=== PATIENT | female | born 1955 | race Asian ===

== ENCOUNTER 2021-05-18 15:10 | Inpatient (IN) | payer MEDICARE, BC ==
[~2021-05-18] VITALS: Ht 157.5 cm; Wt 39.5 kg
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
[2021-05-18] MEDS ORDERED: ACETAMINOPHEN 325 MG TABLET PO PRN (15:30)
[2021-05-18] MEDS ORDERED: TEMAZEPAM 7.5 MG CAPSULE PO PRN (15:30)
[2021-05-18] MEDS ORDERED: BLOOD SUGAR DIAGNOSTIC 1 EACH STRIP IN ONE (15:30)
[2021-05-18] MEDS ORDERED: LORAZEPAM 0.5 MG TABLET PO PRN (15:30)
[2021-05-18] MEDS ORDERED: MAGNESIUM HYDROXIDE 30 ML UDC PO PRN (15:30)
[2021-05-18] MEDS ORDERED: MAG HYDROX/AL HYDROX/SIMETH 30 ML UDC PO PRN (15:30)
[2021-05-18] MEDS ORDERED: LAMO25TA10 PO (16:00)
[2021-05-18] MEDS ORDERED: INSU200I4 SQ (16:00)
[2021-05-18] MEDS ORDERED: METF-440 PO (16:00)
[2021-05-18] MEDS ORDERED: DEXTROSE 50%-WATER 50 ML DISP.SYRIN IV PRN (18:00)
[2021-05-18] MEDS: CEPHALEXIN MONOHYDRATE 250 MG CAPSULE PO SCH (18:23)
[2021-05-18 20:02] VITALS: BP 141/79
[2021-05-18] MEDS: BLOOD SUGAR DIAGNOSTIC 1 EACH STRIP VI SCH (21:21)
[2021-05-18] MEDS: *INSULIN REGULAR(HUMULIN R)HUM 100 UNIT/ML VIAL SQ PRN (21:24)
[2021-05-19] MEDS: CEPHALEXIN MONOHYDRATE 250 MG CAPSULE PO SCH ×4 (00:04→17:03)
[2021-05-19] MEDS: BLOOD SUGAR DIAGNOSTIC 1 EACH STRIP VI SCH ×4 (07:34→21:22)
[2021-05-19 08:00] VITALS: BP 145/80
[2021-05-19] MEDS: GLUCERNA SHAKE 237 ML CAN PO SCH ×2 (08:00→17:43)
[2021-05-19] MEDS: METFORMIN 500 MG TABLET PO SCH ×2 (08:47→16:21)
[2021-05-19 08:59] LABS: ALBUMIN 3.7 g/dL (3.4-5.0); CALCIUM, SERUM 8.8 mg/dL (8.5-10.1); CHOLESTEROL 227 mg/dL (<200); CREATININE 0.4 mg/dL (0.6-1.3); HDL CHOLESTEROL 91 mg/dL (40-60); LDL 118 mg/dL (0-99); POTASSIUM 3.3 mmol/L (3.5-5.1); TRIGLYCERIDES 70 mg/dL (30-150)
[2021-05-19 16:00] VITALS: BP 108/70
--- NOTE | 2021-05-19 16:05 | NUR ---
Family Contact: SW called the pts , Desmond ([phone]), to discuss the pts treatment plan and he stated that he would like the pt home as soon as possible.
--- NOTE | 2021-05-19 16:13 | NUR ---
Initial Discharge Plan: Pt currently resides at home with her located at [address] [place] [address]; ([phone]). Per pt, she would like to return home. SW will work with the pt and the MD regarding appropriate discharge planning. SW will form a safe and proper discharge.
[2021-05-19] MEDS: INSULIN REGULAR, HUMAN 100 UNIT/ML 3 ML VIAL SQ PRN (17:06)
--- NOTE | 2021-05-19 17:44 | NUR ---
RN NOTES PATIENT ABLE TO CONSUME AT LEAST 80% OF MEALS PER SOFTWARE PACKAGER.
[2021-05-19 20:11] VITALS: BP 113/68
[2021-05-19] MEDS: *INSULIN REGULAR(HUMULIN R)HUM 100 UNIT/ML VIAL SQ PRN (21:25)
[2021-05-19] MEDS: MIRTAZAPINE 15 MG TABLET PO SCH (21:46)
[2021-05-19] MEDS: LamoTRIgine 25 MG TABLET PO SCH (21:46)
[2021-05-20] MEDS: CEPHALEXIN MONOHYDRATE 250 MG CAPSULE PO SCH ×5 (00:21→23:07)
[2021-05-20] MEDS: GLUCERNA SHAKE 237 ML CAN PO SCH ×2 (07:35→18:09)
[2021-05-20] MEDS: BLOOD SUGAR DIAGNOSTIC 1 EACH STRIP VI SCH ×4 (07:35→20:43)
[2021-05-20] MEDS: METFORMIN 500 MG TABLET PO SCH ×2 (07:46→18:10)
[2021-05-20] MEDS: LamoTRIgine 25 MG TABLET PO SCH ×2 (07:46→20:44)
[2021-05-20 08:00] VITALS: BP 143/70
[2021-05-20] MEDS: INSULIN REGULAR, HUMAN 100 UNIT/ML 3 ML VIAL SQ PRN ×2 (08:07→12:27)
[2021-05-20 15:52] VITALS: BP 101/69
[2021-05-20 20:18] VITALS: BP 108/65
[2021-05-20 20:21] VITALS: BP 108/65
[2021-05-20] MEDS: MIRTAZAPINE 15 MG TABLET PO SCH (21:24)
--- NOTE | 2021-05-21 02:22 | NUR ---
Ms Gloria PADILLA was visited by her and son. She layed supine in her bed the complete visit Her fed her some custard she swollowed w/o problems She is non verbal this night but will follow simple directions. Her blood sugar at HS 73 jello fed to pt and had to coax her to eat and dring. She willopen her eyes when told to momentaruli
[2021-05-21] MEDS: CEPHALEXIN MONOHYDRATE 250 MG CAPSULE PO SCH ×2 (05:33→12:43)
[2021-05-21 08:00] VITALS: BP 99/59
[2021-05-21] MEDS: BLOOD SUGAR DIAGNOSTIC 1 EACH STRIP VI SCH ×4 (08:15→21:28)
[2021-05-21] MEDS: GLUCERNA SHAKE 237 ML CAN PO SCH ×2 (08:15→17:19)
[2021-05-21] MEDS: METFORMIN 500 MG TABLET PO SCH ×2 (08:17→17:19)
[2021-05-21] MEDS: LamoTRIgine 25 MG TABLET PO SCH ×2 (08:17→21:30)
--- NOTE | 2021-05-21 12:55 | NUR ---
Received an order from Dr. Jacob that may come and help to eat for Sunday (02/19/21) and Sunday, (02/20/21). Dr. Jacob is only covering in the weekends and it's up to the primary, psychiatrist for the following days.
--- NOTE | 2021-05-21 13:00 | NUR ---
GPS/RN BS =141 AT 1200. NO INSULIN COVERAGE GIVEN D/T POOR FOOD INTAKE.
[2021-05-21 16:15] VITALS: BP 99/57
[2021-05-21 20:15] VITALS: BP 88/35
[2021-05-21] MEDS: *INSULIN REGULAR(HUMULIN R)HUM 100 UNIT/ML VIAL SQ PRN (21:28)
--- NOTE | 2021-05-21 21:29 | NUR ---
ACCUCHECK FSBG 84mg/dl Hold insulin per level ordered.
[2021-05-21] MEDS: MIRTAZAPINE 15 MG TABLET PO SCH (21:30)
[2021-05-22 08:00] VITALS: BP 95/53
[2021-05-22] MEDS: BLOOD SUGAR DIAGNOSTIC 1 EACH STRIP VI SCH ×4 (08:20→21:34)
[2021-05-22] MEDS: GLUCERNA SHAKE 237 ML CAN PO SCH ×2 (08:21→16:42)
[2021-05-22] MEDS: LamoTRIgine 25 MG TABLET PO SCH ×2 (08:22→21:34)
[2021-05-22] MEDS: METFORMIN 500 MG TABLET PO SCH ×2 (08:22→16:42)
[2021-05-22 16:00] VITALS: BP 89/53
[2021-05-22 20:00] VITALS: BP 106/60
[2021-05-22] MEDS: MIRTAZAPINE 15 MG TABLET PO SCH (21:34)
[2021-05-22] MEDS: *INSULIN REGULAR(HUMULIN R)HUM 100 UNIT/ML VIAL SQ PRN (22:17)
[2021-05-23 06:28] LABS: BASOPHILS % (AUTO) 0.7 % (0.0-2.0); EOSINOPHILS % (AUTO) 2.3 % (0.0-6.0); HEMATOCRIT 45 % (33-45); HEMOGLOBIN 15.1 g/dL (11.5-14.8); LYMPHOCYTES # (AUTO) 1.5 K/uL (0.8-4.8); LYMPHOCYTES % (AUTO) 27.6 % (20.0-44.0); MEAN CORPUSCULAR HGB CONC 34 g/dl (31.0-36.0); MEAN CORPUSCULAR VOLUME 89 fL (82-100); MONOCYTES # (AUTO) 0.6 K/uL (0.1-1.30); MONOCYTES % (AUTO) 10.9 % (2.0-12.0); NEUTROPHILS # (AUTO) 3.1 K/uL (1.8-8.9); NEUTROPHILS % (AUTO) 58.5 % (43.0-81.0); PLATELET COUNT (AUTO) 299 K/uL (150-450); RED BLOOD CELL COUNT(AUTO) 5.04 MIL/uL (4.0-5.2); WHITE BLOOD COUNT (AUTO) 5.3 K/uL (4.3-11.0)
[2021-05-23 07:16] LABS: CALCIUM, SERUM 8.6 mg/dL (8.5-10.1); CREATININE 0.6 mg/dL (0.6-1.3); MAGNESIUM 2.2 mg/dL (1.8-2.4); PHOSPHORUS 3.9 mg/dL (2.5-4.9); POTASSIUM 3.6 mmol/L (3.5-5.1)
[2021-05-23] MEDS: BLOOD SUGAR DIAGNOSTIC 1 EACH STRIP VI SCH ×4 (07:34→21:50)
[2021-05-23 08:00] VITALS: BP 104/64
[2021-05-23] MEDS: METFORMIN 500 MG TABLET PO SCH ×2 (08:11→17:23)
[2021-05-23] MEDS: GLUCERNA SHAKE 237 ML CAN PO SCH (08:12)
[2021-05-23] MEDS: LamoTRIgine 25 MG TABLET PO SCH ×2 (08:12→21:23)
[2021-05-23 16:00] VITALS: BP 100/53
[2021-05-23] MEDS: ENSURE ENLIVE CHOC 237 ML CAN PO SCH (17:23)
[2021-05-23 20:00] VITALS: BP 101/48
[2021-05-23 20:47] LABS: COLOR,URINE YELLOW (YELLOW); LEUKOCYTE ESTERASE ,URINE NEGATIVE (NEGATIVE); NITRITE, URINE NEGATIVE (NEGATIVE); PH,URINE 5.5 (5.0-8.0); PROTEIN,URINE NEGATIVE (NEGATIVE); UGLUCOSE NEGATIVE (NEGATIVE); UROBILINOGEN,URINE 0.2 EU/dL (0.2)
[2021-05-23 20:50] LABS: BILIRUBIN,URINE NEGATIVE (NEGATIVE)
[2021-05-23 20:51] LABS: BACTERIA,URINE Few /HPF (None Seen); RBC,URINE 0-2 /HPF (0-2); SQUAMOUS EPITHELIAL CELL,UR Few /HPF (None Seen); URINE AMORPHOUS URATE Moderate /HPF (None Seen); WBC,URINE 0-2 /HPF (0-3)
[2021-05-23] MEDS: MIRTAZAPINE 15 MG TABLET PO SCH (21:23)
--- NOTE | 2021-05-23 21:50 | NUR ---
Blood sugar = 86, no insulin coverage based on sliding scale protocol
--- NOTE | 2021-05-24 00:12 | NUR ---
DR. STANFORD SAW PATIENT AT BEDSIDE, PT NOT INTERACTIVE WHEN ENGAGED. DR STANFORD CHANGED THE REMERON 15 MG HS TO REMERON 22.5 MG PO HS. ALSO SAID TO ENCOURAGE PATIENT TO DRINK ENSURE DRINK.
--- NOTE | 2021-05-24 06:31 | NUR ---
RN CLOSING NOTE PATIENT SLEEPING IN BED, NO S/S OF DISTRESS OR SOB NOTED, BREATHING EVEN AND UNLABORED. ENCOURAGED PATIENT TO EAT PUDDING BUT ONLY ATE 2 SPOONFULS WITH MEDICATIONS AND REFUSED TO EAT MORE. ENCOURAGED PT TO DRINK WATER AND WAS COOPERATIVE. PT ONLY SAID A FEW WORDS WHEN ENGAGED IN CONVERSATION, SLEPT MOST OF THE SHIFT. NO COMPLAINTS OF PAIN AT THIS TIME. PT DENIED SI/HI THROUGHOUT SHIFT. PATIENT COMPLIANT WITH MEDICATION. MEDICATIONS GIVEN ORDERED, MEDS CRUSHED WITH PUDDING. PATIENT NEEDS MET THROUGHOUT SHIFT. SAFETY MEASURES & ASPIRATION PRECAUTIONS IN PLACE IN PLACE, BED LOCKED IN LOWEST POSITION, SIDE RAILS UP X 2, HOB ELEVATED, BED ALARM ON, SAFETY CHECKS Q15 MINS THROUGHOUT SHIFT. WILL ENDORSE TO DAY SHIFT NURSE FOR CONTINUITY OF CARE
[2021-05-24 08:00] VITALS: BP 99/59
[2021-05-24] MEDS: BLOOD SUGAR DIAGNOSTIC 1 EACH STRIP VI SCH ×4 (08:29→21:15)
[2021-05-24] MEDS: ENSURE ENLIVE CHOC 237 ML CAN PO SCH ×3 (08:35→16:47)
[2021-05-24] MEDS: METFORMIN 500 MG TABLET PO SCH ×2 (09:00→17:22)
[2021-05-24] MEDS: LamoTRIgine 25 MG TABLET PO SCH ×2 (10:34→20:59)
--- NOTE | 2021-05-24 11:22 | NUR ---
Probable Cause Hearing: Pts [phone] hold was upheld for grave disability and danger to herself.
--- NOTE | 2021-05-24 17:19 | NUR ---
INSULIN COVERAGE HELD PT. NOT EATING.
--- NOTE | 2021-05-24 17:58 | NUR ---
CALL OUT TO DR. HUBER,PHOTO SENT OF URINE CULTURE.
[2021-05-24 20:00] VITALS: BP 110/57
[2021-05-24] MEDS: CEPHALEXIN MONOHYDRATE 500 MG CAPSULE PO SCH (20:59)
[2021-05-24] MEDS: MIRTAZAPINE 15 MG TABLET PO SCH (21:06)
[2021-05-24] MEDS: *INSULIN REGULAR(HUMULIN R)HUM 100 UNIT/ML VIAL SQ PRN (21:25)
[2021-05-25 08:00] VITALS: BP 107/65
[2021-05-25] MEDS: ENSURE ENLIVE CHOC 237 ML CAN PO SCH ×3 (08:34→16:15)
[2021-05-25] MEDS: METFORMIN 500 MG TABLET PO SCH ×2 (08:34→16:15)
[2021-05-25] MEDS: LamoTRIgine 25 MG TABLET PO SCH ×2 (08:34→21:15)
[2021-05-25] MEDS: BLOOD SUGAR DIAGNOSTIC 1 EACH STRIP VI SCH ×4 (08:34→21:17)
[2021-05-25] MEDS: CEPHALEXIN MONOHYDRATE 500 MG CAPSULE PO SCH ×2 (08:34→16:15)
[2021-05-25 16:00] VITALS: BP 100/59
[2021-05-25] MEDS: INSULIN REGULAR, HUMAN 100 UNIT/ML 3 ML VIAL SQ PRN (17:53)
--- NOTE | 2021-05-25 20:00 | NUR ---
GPS RN OPEN NOTE: PER REPORT FROM EARLIER PATIENT IS EATING WHEN VISITS ALMOST 50% OF MEALS AND ALLOWED TO VISIT FOR ALL MEALS IF HE COMES. PT STILL HAS SOMEWHAT POOR APPETITE. PATIENT LYING IN BED. NO APPARENT ACUTE DISTRESS NOTED. VSS, DEPRESSED WITH FLAT AFFECT. ENCOURAGED PO INTAKE. PT DENIES CURRENT SI/HI AT PRESENT TIME. PER REPORT PT COMPLIANT WITH MEDICATIONS AND BLOOD SUGAR MONITORING. PT NEEDS ENCOURAGEMENT FOR ADEQUATE PO INTAKE AND ADLS. WILL CONT TO MONITOR FOR SAFETY AND BEHAVIOR PER PROTOCOL.
[2021-05-25 20:34] VITALS: BP 96/52
[2021-05-25] MEDS: *INSULIN REGULAR(HUMULIN R)HUM 100 UNIT/ML VIAL SQ PRN (21:15)
[2021-05-25] MEDS: MIRTAZAPINE 15 MG TABLET PO SCH (21:16)
--- NOTE | 2021-05-25 22:10 | NUR ---
CARE ENDORSED TO FAA RN.
[2021-05-26 08:00] VITALS: BP 106/63
[2021-05-26] MEDS: BLOOD SUGAR DIAGNOSTIC 1 EACH STRIP VI SCH ×4 (08:21→21:23)
[2021-05-26] MEDS: ENSURE ENLIVE CHOC 237 ML CAN PO SCH ×3 (08:36→17:11)
[2021-05-26] MEDS: CEPHALEXIN MONOHYDRATE 500 MG CAPSULE PO SCH ×2 (08:36→16:50)
[2021-05-26] MEDS: LamoTRIgine 25 MG TABLET PO SCH ×2 (08:36→21:03)
[2021-05-26] MEDS: METFORMIN 500 MG TABLET PO SCH ×2 (08:36→16:50)
--- NOTE | 2021-05-26 12:05 | NUR ---
RN-NOTES DR. MAYO RINCON IN THE UNIT AND MADE AWARE OF PATIENT POOR P.O INTAKE WITH VERBAL ORDER OF CBC,CMP,MAG, PHOSPHORUS IN AM AND USCS . NOTED AND CARRIED OUT.
[2021-05-26 16:12] VITALS: BP 113/55
[2021-05-26] MEDS: INSULIN REGULAR, HUMAN 100 UNIT/ML 3 ML VIAL SQ PRN (17:13)
[2021-05-26 20:21] VITALS: BP 108/63
--- NOTE | 2021-05-26 20:30 | NUR ---
RN NOTE PATIENT'S SISTER & NEPHEW VISITED THE PATIENT, PER SISTER SHE FED SOUP TO THE PT. & TOLERATED WELL. WILL CONTINUE TO ENCOURAGE THE PATIENT PO INTAKE TOLERATED.
[2021-05-26 20:31] VITALS: BP 108/63
[2021-05-26] MEDS: MIRTAZAPINE 15 MG TABLET PO SCH (21:49)
[2021-05-26] MEDS: *INSULIN REGULAR(HUMULIN R)HUM 100 UNIT/ML VIAL SQ PRN (22:11)
--- NOTE | 2021-05-27 06:00 | NUR ---
RN NOTE PATIENT SLEPT WELL AT NIGHT, WAS UP COUPLE TIMES TO USE THE RESTROOM. ENCOURAGED PO INTAKE TOLERATED BUT PATIENT REFUSES TO EAT OR DRINK MUCH, KEEPS PUSHING NURSE'S HAND AWAY. ELECTRONIC NEWS GATHERING CAMERA PERSON WAS ABLE TO ASSIST THE PATIENT TO HAVE 1/2 PUDDING, 1/2 APPLE JUICE & WATER THROUGH OUT THE NIGHT. WILL CONTINUE TO MONITOR.
--- NOTE | 2021-05-27 06:03 | NUR ---
RN NOTE URINE SPECIMEN COLLECTED FOR CULTURE ORDERED BY MD & WILL BE SENT TO THE LAB.
[2021-05-27 07:11] LABS: BASOPHILS % (AUTO) 0.8 % (0.0-2.0); EOSINOPHILS % (AUTO) 2.4 % (0.0-6.0); HEMATOCRIT 43 % (33-45); HEMOGLOBIN 14.6 g/dL (11.5-14.8); LYMPHOCYTES % (AUTO) 22.7 % (20.0-44.0); MEAN CORPUSCULAR HGB CONC 34 g/dl (31.0-36.0); MEAN CORPUSCULAR VOLUME 88 fL (82-100); MONOCYTES # (AUTO) 0.4 K/uL (0.1-1.30); MONOCYTES % (AUTO) 10.3 % (2.0-12.0); NEUTROPHILS # (AUTO) 2.7 K/uL (1.8-8.9); NEUTROPHILS % (AUTO) 63.8 % (43.0-81.0); PLATELET COUNT (AUTO) 275 K/uL (150-450); RED BLOOD CELL COUNT(AUTO) 4.91 MIL/uL (4.0-5.2); WHITE BLOOD COUNT (AUTO) 4.3 K/uL (4.3-11.0)
[2021-05-27 07:45] LABS: ALBUMIN 3.2 g/dL (3.4-5.0); BILIRUBIN,TOTAL 0.5 mg/dL (0.2-1.0); CALCIUM, SERUM 8.8 mg/dL (8.5-10.1); CREATININE 0.6 mg/dL (0.6-1.3); MAGNESIUM 1.9 mg/dL (1.8-2.4); PHOSPHORUS 3.3 mg/dL (2.5-4.9); POTASSIUM 3.7 mmol/L (3.5-5.1); TOTAL PROTEIN, SERUM 6.3 g/dL (6.4-8.2)
[2021-05-27 08:10] VITALS: BP 116/69
[2021-05-27] MEDS: BLOOD SUGAR DIAGNOSTIC 1 EACH STRIP VI SCH ×4 (08:11→22:39)
[2021-05-27] MEDS: CEPHALEXIN MONOHYDRATE 500 MG CAPSULE PO SCH ×2 (08:31→16:42)
[2021-05-27] MEDS: ENSURE ENLIVE CHOC 237 ML CAN PO SCH ×3 (08:31→16:42)
[2021-05-27] MEDS: METFORMIN 500 MG TABLET PO SCH ×2 (08:31→16:42)
[2021-05-27] MEDS: LamoTRIgine 25 MG TABLET PO SCH ×2 (08:31→21:00)
[2021-05-27] MEDS: INSULIN REGULAR, HUMAN 100 UNIT/ML 3 ML VIAL SQ PRN ×2 (12:20→17:31)
[2021-05-27 16:00] VITALS: BP 94/57
--- NOTE | 2021-05-27 18:24 | NUR ---
RN-NOTES PATIENT LYING IN BED,AWAKE,ALERT ,GUARDED,CALM,NO ACUTE DISTRESS NOTED. ENDORSED TO THE CHARGE NURSE.
[2021-05-27 20:38] VITALS: BP 110/59
[2021-05-27 21:06] VITALS: BP 110/59
--- NOTE | 2021-05-27 22:20 | NUR ---
RN NOTE PATIENT'S BS IS 93 MG/DL, NO SSI COVERAGE NEEDED. ASSISTED PATIENT WITH FEEDING 1 PUDDING, 1 ORANGE JUICE & WATER, TOLERATED WELL. PATIENT NEEDS LOTS OF ENCOURAGEMENT WITH PO INTAKE, PATIENT ATTEMPTS TO PUSH WRITERS HAND AWAY EACH TIME SHE WAS OFFERED PO INTAKE. WILL CONTINUE TO ENCOURAGE PO INTAKE TOLERATED.
[2021-05-27] MEDS: MIRTAZAPINE 15 MG TABLET PO SCH (22:39)
--- NOTE | 2021-05-27 23:30 | NUR ---
RN NOTE PATIENT HAD 1/2 CUP OF ENSURE & TOLERATED WELL.
[2021-05-28 08:00] VITALS: BP 116/57
[2021-05-28] MEDS: LamoTRIgine 25 MG TABLET PO SCH ×2 (08:55→21:29)
[2021-05-28] MEDS: METFORMIN 500 MG TABLET PO SCH ×2 (08:55→16:26)
[2021-05-28] MEDS: ENSURE ENLIVE CHOC 237 ML CAN PO SCH ×3 (08:55→16:26)
[2021-05-28] MEDS: BLOOD SUGAR DIAGNOSTIC 1 EACH STRIP VI SCH ×4 (08:55→22:03)
[2021-05-28] MEDS: CEPHALEXIN MONOHYDRATE 500 MG CAPSULE PO SCH ×2 (08:55→16:26)
[2021-05-28] MEDS: INSULIN REGULAR, HUMAN 100 UNIT/ML 3 ML VIAL SQ PRN (12:08)
[2021-05-28 16:06] VITALS: BP 127/73
[2021-05-28 20:12] VITALS: BP 99/55
--- NOTE | 2021-05-28 20:28 | NUR ---
RN NOTE RECEIVED PATIENT SITTING IN BED, PT'S FRIEND AT BED SIDE, ENCOURAGING THE PT. TO EAT/DRINK. PATIENT NOTED TO BE TAKING VERY SMALL BITES OF FOOD WITH LOTS OF ENCOURAGEMENT. AFTER PATIENT'S FRIEND LEFT, NURSE ASSISTED PATIENT TO THE BATHROOM & PATIENT WALKED IN THE HALLWAY FOR ABOUT 15 MINUTES WITH FOUNDRY FINISHER STAND BY FOR SAFETY. ASSISTED PATIENT BACK TO HER BED AFTER WALKING & MADE HER COMFORTABLE IN BED. PER AM RN REPORT, PATIENT HAD SHOWER TODAY. WILL CONTINUE TO MONITOR.
[2021-05-28 20:37] VITALS: BP 99/55
[2021-05-28 21:50] VITALS: BP 132/78
--- NOTE | 2021-05-28 21:54 | NUR ---
RN NOTE PATIENT'S VITALS ARE 132/78, 96, 18, 98.2, 95% AT RA. NO ACUTE DISTRESS NOTED. BS LEVEL IS 133 MG/DL. PATIENT IS REFUSING TO EAT ANY SNACK AT THIS TIME, ONLY HAD WATER. HAS HISTORY OF POOR PO INTAKE. WILL HOLD 2 UNITS SSI COVERAGE TONIGHT TO PREVENT HYPOGLYCEMIA. WILL MONITOR THE PATIENT CLOSELY.
[2021-05-28] MEDS: MIRTAZAPINE 15 MG TABLET PO SCH (22:03)
--- NOTE | 2021-05-29 01:21 | NUR ---
RN NOTE PATIENT IS SLEEPING COMFORTABLY. NO ACUTE CHANGES NOTED.
[2021-05-29] MEDS: ENSURE ENLIVE CHOC 237 ML CAN PO SCH ×3 (08:00→17:12)
[2021-05-29 08:02] VITALS: BP 101/48
[2021-05-29] MEDS: CEPHALEXIN MONOHYDRATE 500 MG CAPSULE PO SCH ×3 (09:14→17:00)
[2021-05-29] MEDS: METFORMIN 500 MG TABLET PO SCH ×3 (09:14→17:00)
[2021-05-29] MEDS: LamoTRIgine 25 MG TABLET PO SCH ×2 (09:14→21:20)
[2021-05-29] MEDS: BLOOD SUGAR DIAGNOSTIC 1 EACH STRIP VI SCH ×4 (09:15→21:42)
[2021-05-29] MEDS: INSULIN REGULAR, HUMAN 100 UNIT/ML 3 ML VIAL SQ PRN ×3 (12:02→16:40)
[2021-05-29 16:02] VITALS: BP 120/70
[2021-05-29 20:00] VITALS: BP 149/91
[2021-05-29] MEDS: *INSULIN REGULAR(HUMULIN R)HUM 100 UNIT/ML VIAL SQ PRN (21:43)
--- NOTE | 2021-05-29 22:00 | NUR ---
MS RN NOTES PATIENT BLOOD SUGAR 162. GIVEN 3 UNITS OF INSULIN.
[2021-05-29] MEDS: MIRTAZAPINE 15 MG TABLET PO SCH (22:08)
--- NOTE | 2021-05-30 05:27 | NUR ---
GPS RN NOTES PATIENT REFUSED SKIN PICTURE. Addendum: 05/30/21 at 0529 by LESLY ARIZA RN GPS RN NOTES PATIENT REFUSED SKIN PICTURE. NO OPEN WOUND NOTED JUST THE BLE DISCOLORATION.
[2021-05-30] MEDS: INSULIN REGULAR, HUMAN 100 UNIT/ML 3 ML VIAL SQ PRN ×2 (07:52→17:38)
[2021-05-30 08:00] VITALS: BP 125/90
[2021-05-30] MEDS: ENSURE ENLIVE CHOC 237 ML CAN PO SCH ×3 (08:03→17:20)
[2021-05-30] MEDS: BLOOD SUGAR DIAGNOSTIC 1 EACH STRIP VI SCH ×4 (08:05→22:40)
[2021-05-30] MEDS: METFORMIN 500 MG TABLET PO SCH ×2 (09:00→17:28)
[2021-05-30] MEDS: LamoTRIgine 25 MG TABLET PO SCH (09:37)
[2021-05-30] MEDS: CEPHALEXIN MONOHYDRATE 500 MG CAPSULE PO SCH ×2 (09:37→17:28)
--- NOTE | 2021-05-30 09:38 | NUR ---
Med held as pt not eating. Addendum: 05/30/21 at 0940 by MICHAEL NAQVI RN Insulin given according to sliding scale.
--- NOTE | 2021-05-30 12:00 | NUR ---
RN NOTE PATIENT'S BS IS 99 MG/DL, NO SSI COVERAGE NEEDED. ASSISTED PATIENT WITH FEEDING 1 PUDDING, 1 ENSURE TOLERATED WELL. PATIENT NEEDS LOTS OF ENCOURAGEMENT WITH PO INTAKE, PATIENT ATTEMPTS TO PUSH HAND AWAY EACH TIME SHE WAS OFFERED PO INTAKE. WILL CONTINUE TO ENCOURAGE PO INTAKE TOLERATED
[2021-05-30 16:00] VITALS: BP 108/59
[2021-05-30 20:00] VITALS: BP 119/66
--- NOTE | 2021-05-30 20:30 | NUR ---
RN NOTE PATIENT SEEN BY DR. STANFORD AT BEDSIDE. PLACED NEW ORDER FOR LITHIUM 300MG Q12H, FAXED CONSENT FORM TO PHARMACY, FIRST DOSE GIVEN ORDERED. LAMICTAL 25MG DISCONTINUED BY DR. STANFORD AND REMERON 30 MG HS CHANGED TO REMERON 37.5MG HS WELL. WILL CONTINUE TO MONITOR
[2021-05-30] MEDS: LITHIUM CARBONATE (300 MG CAP) 300 MG CAPSULE PO SCH (21:46)
--- NOTE | 2021-05-30 22:40 | NUR ---
RN NOTE PATIENT'S BLOOD SUGAR IS 111 MG/DL, NO SLIDING SCALE INSULIN COVERAGE NEEDED. WILL CONTINUE TO MONITOR
[2021-05-30] MEDS: MIRTAZAPINE 15 MG TABLET PO SCH (22:41)
--- NOTE | 2021-05-31 06:44 | NUR ---
RN CLOSING NOTE PATIENT SLEEPING IN ROOM, NO S/S OF DISTRESS OR SOB NOTED, BREATHING EVEN AND UNLABORED. PT WITHDRAWN, ISOLATIVE AND NON-INTERACTIVE. PATIENT WAS MED COMPLIANT BUT REQUIRED FIRM ENCOURAGEMENT TO TAKE MEDS, PUSHED SPOON AWAY FROM MOUTH MULTIPLE TIMES, TOOK A LONG TIME TO TAKE MEDS, MEDS GIVEN CRUSHED IN PUDDING. MEDICATIONS GIVEN ORDERED. PATIENT NEEDS MET THROUGHOUT SHIFT. PATIENT DENIED SI/HI, NO C/O PAIN THROUGHOUT SHIFT. PATIENT SLEPT 8 HOURS. SAFETY MEASURES KEPT IN PLACE: BED LOCKED IN LOWEST POSITION, SIDE RAILS UP X 2, BED ALARM ON, Q15 MIN CHECKS FOR SAFETY BY STAFF. WILL ENDORSE TO DAY SHIFT NURSE FOR CONTINUITY OF CARE
[2021-05-31] MEDS: BLOOD SUGAR DIAGNOSTIC 1 EACH STRIP VI SCH ×4 (07:37→22:10)
--- NOTE | 2021-05-31 07:38 | NUR ---
RN NOTE: INSULIN HELD ACCUCHECK 134. SLIDING SCALE INSULIN HELD DUE TO POOR PO INTAKE.
[2021-05-31 08:00] VITALS: BP 120/71
[2021-05-31] MEDS: LITHIUM CARBONATE (300 MG CAP) 300 MG CAPSULE PO SCH ×2 (08:37→21:43)
[2021-05-31] MEDS: METFORMIN 500 MG TABLET PO SCH ×2 (08:37→17:27)
[2021-05-31] MEDS: CEPHALEXIN MONOHYDRATE 500 MG CAPSULE PO SCH (08:37)
[2021-05-31] MEDS: ENSURE ENLIVE CHOC 237 ML CAN PO SCH ×3 (08:37→17:27)
[2021-05-31] MEDS: INSULIN REGULAR, HUMAN 100 UNIT/ML 3 ML VIAL SQ PRN (11:55)
[2021-05-31 16:00] VITALS: BP 99/59
[2021-05-31] MEDS: MEGESTROL ACETATE 40 MG TABLET PO SCH (17:27)
[2021-05-31 20:00] VITALS: BP 104/53
[2021-05-31] MEDS: MIRTAZAPINE 15 MG TABLET PO SCH (21:43)
[2021-05-31] MEDS: *INSULIN REGULAR(HUMULIN R)HUM 100 UNIT/ML VIAL SQ PRN (22:15)
[2021-06-01 06:46] LABS: BASOPHILS # (AUTO) 0.1 K/uL (0.0-0.2); BASOPHILS % (AUTO) 0.9 % (0.0-2.0); EOSINOPHILS % (AUTO) 1.5 % (0.0-6.0); HEMATOCRIT 45 % (33-45); LYMPHOCYTES # (AUTO) 1.9 K/uL (0.8-4.8); LYMPHOCYTES % (AUTO) 18.3 % (20.0-44.0); MEAN CORPUSCULAR HGB CONC 33 g/dl (31.0-36.0); MEAN CORPUSCULAR VOLUME 90 fL (82-100); MONOCYTES # (AUTO) 0.8 K/uL (0.1-1.30); MONOCYTES % (AUTO) 7.9 % (2.0-12.0); NEUTROPHILS # (AUTO) 7.2 K/uL (1.8-8.9); NEUTROPHILS % (AUTO) 71.4 % (43.0-81.0); PLATELET COUNT (AUTO) 357 K/uL (150-450); RED BLOOD CELL COUNT(AUTO) 5.04 MIL/uL (4.0-5.2); WHITE BLOOD COUNT (AUTO) 10.1 K/uL (4.3-11.0)
[2021-06-01 07:01] LABS: CALCIUM, SERUM 9.1 mg/dL (8.5-10.1); CREATININE 0.5 mg/dL (0.6-1.3); MAGNESIUM 2.4 mg/dL (1.8-2.4); PHOSPHORUS 3.4 mg/dL (2.5-4.9)
[2021-06-01 08:00] VITALS: BP 108/65
[2021-06-01] MEDS: BLOOD SUGAR DIAGNOSTIC 1 EACH STRIP VI SCH ×4 (08:09→21:28)
[2021-06-01] MEDS: ENSURE ENLIVE CHOC 237 ML CAN PO SCH ×2 (08:09→12:17)
[2021-06-01] MEDS: LITHIUM CARBONATE (300 MG CAP) 300 MG CAPSULE PO SCH ×2 (08:39→21:20)
[2021-06-01] MEDS: METFORMIN 500 MG TABLET PO SCH ×2 (08:40→17:21)
[2021-06-01] MEDS: MEGESTROL ACETATE 40 MG TABLET PO SCH ×2 (08:40→17:21)
[2021-06-01] MEDS: INSULIN REGULAR, HUMAN 100 UNIT/ML 3 ML VIAL SQ PRN (12:23)
[2021-06-01] MEDS: ENSURE ENLIVE 237 ML LIQUID (VANILLA) PO SCH (15:49)
[2021-06-01 16:00] VITALS: BP 120/78
[2021-06-01 20:01] VITALS: BP 103/61
--- NOTE | 2021-06-01 20:19 | NUR ---
RN NOTE PATIENT HAD LARGE BM, BROWN & SOFT AT THIS TIME. WILL CONTINUE TO MONITOR FOR ANY ANTONIA.
[2021-06-01 20:22] VITALS: BP 149/72
[2021-06-01 21:10] VITALS: BP 114/64
--- NOTE | 2021-06-01 21:13 | NUR ---
RN NOTE PATIENT'S VITALS ARE 114/64, 88, 18, 98F, 96% AT RA. NO ACUTE CHANGES NOTED. WILL CONTINUE TO MONITOR.
[2021-06-01] MEDS: *INSULIN REGULAR(HUMULIN R)HUM 100 UNIT/ML VIAL SQ PRN (21:33)
[2021-06-01] MEDS: MIRTAZAPINE 15 MG TABLET PO SCH (22:05)
--- NOTE | 2021-06-02 05:00 | NUR ---
RN NOTE PATIENT HAD VANILLA ENSURE, PUDDING & WATER AT NIGHT. PATIENT REFUSES TO EAT ANYTHING, NEEDS LOTS OF ENCOURAGEMENT FOR PO INTAKE. PATIENT ALSO REFUSED TO OPEN HER MOUTH AT TIMES. DR. STANFORD VISITED THE PATIENT AT NIGHT & DR. STANFORD WAS NOTIFIED ABOUT PATIENT'S BEHAVIOR & REFUSING PO INTAKE.
[2021-06-02] MEDS: BLOOD SUGAR DIAGNOSTIC 1 EACH STRIP VI SCH ×4 (07:56→22:00)
[2021-06-02 08:00] VITALS: BP 111/68
[2021-06-02] MEDS: METFORMIN 500 MG TABLET PO SCH ×3 (09:00→16:31)
[2021-06-02] MEDS: LITHIUM CARBONATE (300 MG CAP) 300 MG CAPSULE PO SCH ×3 (09:00→21:21)
[2021-06-02] MEDS: MEGESTROL ACETATE 40 MG TABLET PO SCH ×3 (09:00→16:31)
[2021-06-02] MEDS: ENSURE ENLIVE 237 ML LIQUID (VANILLA) PO SCH ×3 (09:50→16:33)
[2021-06-02] MEDS: INSULIN REGULAR, HUMAN 100 UNIT/ML 3 ML VIAL SQ PRN ×3 (09:55→17:42)
--- NOTE | 2021-06-02 09:56 | NUR ---
BS is 132, Humulin R of 2 units not given. Pt. not eating well and will continue to monitor.
--- NOTE | 2021-06-02 13:58 | NUR ---
Notified Dhaval Obrien NP was notified that pt. with poor po intake and notified about the labs. No new order and will continue to monitor.
[2021-06-02 16:00] VITALS: BP 125/73
[2021-06-02 19:32] VITALS: BP 119/66
[2021-06-02 20:02] VITALS: BP 119/66
[2021-06-02] MEDS: MIRTAZAPINE 15 MG TABLET PO SCH (21:44)
--- NOTE | 2021-06-02 22:00 | NUR ---
RN NOTE: HELD SSI COVERAGE PATIENT'S BLOOD SUGAR LEVEL IS 146 MG/DL AT THIS TIME BUT PATIENT IS REFUSING TO EAT SNACK AT THIS TIME. NON COMPLAINT & UNCOOPERATIVE WITH PO INTAKE. HAD SMALL AMOUNT OF JELLO & FEW SIPS OF WATER AT THIS TIME. HELD SSI COVERAGE TO PREVENT HYPOGLYCEMIA. WILL CONTINUE TO MONITOR.
[2021-06-03] MEDS: BLOOD SUGAR DIAGNOSTIC 1 EACH STRIP VI SCH ×4 (07:49→21:25)
[2021-06-03 08:00] VITALS: BP 106/64
[2021-06-03] MEDS: MEGESTROL ACETATE 40 MG TABLET PO SCH ×2 (09:07→16:38)
[2021-06-03] MEDS: METFORMIN 500 MG TABLET PO SCH ×2 (09:08→16:38)
[2021-06-03] MEDS: LITHIUM CARBONATE (300 MG CAP) 300 MG CAPSULE PO SCH ×3 (09:08→21:14)
[2021-06-03] MEDS: ENSURE ENLIVE 237 ML LIQUID (VANILLA) PO SCH ×3 (09:12→16:38)
[2021-06-03] MEDS: INSULIN REGULAR, HUMAN 100 UNIT/ML 3 ML VIAL SQ PRN ×2 (13:58→17:41)
--- NOTE | 2021-06-03 19:30 | NUR ---
GPS RN NOTE, RECEIVED PATIENT AWAKE AND IN BED, NO S/S OR COMPLAINTS OF PAIN AT THIS TIME. PATIENT IS DISPLAYING NO S/S OF APPARENT DISTRESS AT THIS TIME. PATIENT BREATHING IS UNLABORED WITH EQUAL RISE AND FALL OF THE CHEST. PATIENT IS ALERT AND ORIENTED X 1 -2 ON ROOM AIR WITH A SPO2 95%. PATIENT IS COMPLIANT WITH MEDICATIONS, CONFUSED, FLAT AFFECT, UNMOTIVATED, COOPERATIVE, AND NEEDS REDIRECTION. PATIENT DENIES SUICIDAL AND HOMICIDAL IDEATIONS AT THIS TIME BUT IS CONFUSED. PATIENT ASSISTED WITH TURNING AND REPOSITIONING Q2HR AND PRN FOR COMFORT AND CIRCULATION. PATIENT HAS NO NEEDS AT THIS TIME. PATIENT EDUCATED ON THE USE OF THE CALL LIGHT. PATIENT BED SIDE RAILS UP X 2 FOR SAFETY. PATIENT BED IS LOCKED, LOW, WITH BED ALARM ON. WILL CONTINUE TO MONITOR THIS PATIENT Q15 MINUTES WITH THE HELP OF STAFF TO MAINTAIN SAFETY.
[2021-06-03 20:00] VITALS: BP 122/56
[2021-06-03] MEDS: MIRTAZAPINE 15 MG TABLET PO SCH ×2 (21:14→21:41)
--- NOTE | 2021-06-03 21:25 | NUR ---
GPS RN NOTE, PERFORMED ACCU CHECK WITH AA BLOOD SUGAR RESULT OF 203. GAVE 4 UNITS OF REGULAR INSULIN PER SLIDING SCALE. GAVE 8OZ OF ORANGE JUICE A SNACK. WILL CONTINUE TO MONITOR THIS PATIENT WITH THE HELP OF STAFF.
[2021-06-03] MEDS: *INSULIN REGULAR(HUMULIN R)HUM 100 UNIT/ML VIAL SQ PRN (21:30)
--- NOTE | 2021-06-03 21:44 | NUR ---
GPS RN NOTE, PATIENT REFUSED LITHIUM CARBONATE 300MG PO Q12HR AND REMERON 37.5MG PO HS. OFFERED MEDICATION THREE TIMES AND STILL PATIENT REFUSED AND KEPT SHAKING HER HEAD NO. EDUCATED PATIENT ON THE RISKS AND BENEFITS OF TAKING AND REFUSING AFOREMENTIONED MEDICATION. WILL CONTINUE TO MONITOR THIS PATIENT WITH HELP OF STAFF.
[2021-06-04] MEDS: BLOOD SUGAR DIAGNOSTIC 1 EACH STRIP VI SCH ×4 (07:54→21:47)
[2021-06-04 08:00] VITALS: BP 103/52
[2021-06-04] MEDS: MEGESTROL ACETATE 40 MG TABLET PO SCH ×2 (09:01→17:18)
[2021-06-04] MEDS: ENSURE ENLIVE 237 ML LIQUID (VANILLA) PO SCH ×3 (09:01→17:19)
[2021-06-04] MEDS: METFORMIN 500 MG TABLET PO SCH ×2 (09:01→17:18)
[2021-06-04] MEDS: LITHIUM CARBONATE (300 MG CAP) 300 MG CAPSULE PO SCH ×2 (09:01→21:21)
[2021-06-04] MEDS: INSULIN REGULAR, HUMAN 100 UNIT/ML 3 ML VIAL SQ PRN (12:46)
--- NOTE | 2021-06-04 12:50 | NUR ---
RN-NOTES BS OF 146MG/DL,2 UNITS OF R INSULIN NOT ADMINISTER DUE TO PATIENT DID NOT EAT LUNCH DESPITE ENCOURAGEMENT.
[2021-06-04 16:00] VITALS: BP 113/67
[2021-06-04 20:00] VITALS: BP 107/53
[2021-06-04 20:15] VITALS: BP 103/42
[2021-06-04 21:05] VITALS: BP 116/65
--- NOTE | 2021-06-04 21:12 | NUR ---
RN NOTE PATIENT WAS ASSISTED TO DRINK 1 APPLE JUICE, TOLERATED WELL. VITALS ARE 116/65, 82, 18, 97.6F, 96% AT RA. WILL CONTINUE TO ENCOURAGE PO INTAKE TOLERATED.
[2021-06-04] MEDS: MIRTAZAPINE 15 MG TABLET PO SCH (22:16)
[2021-06-04] MEDS: *INSULIN REGULAR(HUMULIN R)HUM 100 UNIT/ML VIAL SQ PRN (22:37)
[2021-06-05] MEDS: BLOOD SUGAR DIAGNOSTIC 1 EACH STRIP VI SCH ×4 (06:58→21:26)
--- NOTE | 2021-06-05 07:00 | NUR ---
RN NOTE PATIENT'S BS IS 102 MG/DL AT THIS TIME. NO SSI COVERAGE NEEDED. WILL ENDORSE TO AM YOBANY.
[2021-06-05 08:00] VITALS: BP 109/58
[2021-06-05] MEDS: ENSURE ENLIVE 237 ML LIQUID (VANILLA) PO SCH ×3 (08:58→17:48)
[2021-06-05] MEDS: MEGESTROL ACETATE 40 MG TABLET PO SCH ×2 (08:59→17:48)
[2021-06-05] MEDS: LITHIUM CARBONATE (300 MG CAP) 300 MG CAPSULE PO SCH ×2 (08:59→20:48)
[2021-06-05] MEDS: METFORMIN 500 MG TABLET PO SCH ×2 (08:59→17:48)
[2021-06-05 16:00] VITALS: BP 104/56
[2021-06-05 20:00] VITALS: BP 106/54
[2021-06-05] MEDS: MIRTAZAPINE 15 MG TABLET PO SCH (21:26)
[2021-06-05] MEDS: *INSULIN REGULAR(HUMULIN R)HUM 100 UNIT/ML VIAL SQ PRN (21:26)
[2021-06-06] MEDS: BLOOD SUGAR DIAGNOSTIC 1 EACH STRIP VI SCH ×4 (07:48→21:39)
[2021-06-06 08:00] VITALS: BP 112/66
[2021-06-06] MEDS: METFORMIN 500 MG TABLET PO SCH ×2 (09:32→17:41)
[2021-06-06] MEDS: ENSURE ENLIVE 237 ML LIQUID (VANILLA) PO SCH ×3 (09:32→17:41)
[2021-06-06] MEDS: LITHIUM CARBONATE (300 MG CAP) 300 MG CAPSULE PO SCH ×2 (09:32→20:56)
[2021-06-06] MEDS: MEGESTROL ACETATE 40 MG TABLET PO SCH ×2 (09:32→17:41)
[2021-06-06] MEDS: INSULIN REGULAR, HUMAN 100 UNIT/ML 3 ML VIAL SQ PRN ×2 (12:22→17:55)
[2021-06-06 16:22] VITALS: BP 133/71
--- NOTE | 2021-06-06 19:45 | NUR ---
RN NOTE: TELEPHONE CALL TO VIOLET TOLLIVER RE DR. STANFORD'S DESIRE TO TRANSFER PT TO THE MEDICAL FLOOR. MOST RECENT LABS REVIEWED WELL PO INTAKE AND COMPLETED TREATMENT OF UTI WITH KEFLEX. NO NEW ORDER FOR TRANSFER. STAT LABS TO BE ORDERED AND RESULTS TO BE REVIEWED
[2021-06-06 20:56] LABS: BASOPHILS # (AUTO) 0.1 K/uL (0.0-0.2); BASOPHILS % (AUTO) 1.9 % (0.0-2.0); EOSINOPHILS % (AUTO) 1.7 % (0.0-6.0); HEMATOCRIT 41 % (33-45); HEMOGLOBIN 13.9 g/dL (11.5-14.8); LYMPHOCYTES # (AUTO) 1.4 K/uL (0.8-4.8); LYMPHOCYTES % (AUTO) 22.3 % (20.0-44.0); MEAN CORPUSCULAR HGB CONC 34 g/dl (31.0-36.0); MEAN CORPUSCULAR VOLUME 88 fL (82-100); MONOCYTES # (AUTO) 0.5 K/uL (0.1-1.30); MONOCYTES % (AUTO) 7.2 % (2.0-12.0); NEUTROPHILS # (AUTO) 4.2 K/uL (1.8-8.9); NEUTROPHILS % (AUTO) 66.9 % (43.0-81.0); PLATELET COUNT (AUTO) 382 K/uL (150-450); RED BLOOD CELL COUNT(AUTO) 4.65 MIL/uL (4.0-5.2); WHITE BLOOD COUNT (AUTO) 6.3 K/uL (4.3-11.0)
[2021-06-06] MEDS: MIRTAZAPINE 15 MG TABLET PO SCH (20:56)
[2021-06-06 21:08] LABS: CREATINE KINASE, TOTAL 20 U/L (26-192); THYROID STIMULATING HORMONE 2.103 uIU/mL (0.358-3.74)
[2021-06-06 21:41] LABS: ALANINE AMINOTRANSFERASE 21 U/L (12-78); ALBUMIN 3.2 g/dL (3.4-5.0); ALKALINE PHOSPHATASE 53 U/L (46-116); ASPARTATE AMINOTRANSFERASE 23 U/L (15-37); BILIRUBIN,TOTAL 0.4 mg/dL (0.2-1.0); CARBON DIOXIDE 25 mmol/L (21-32); CHLORIDE 105 mmol/L (98-107); CREATININE 0.8 mg/dL (0.6-1.3); GLUCOSE 252 mg/dL (74-106); MAGNESIUM 2.2 mg/dL (1.8-2.4); PHOSPHORUS 3.1 mg/dL (2.5-4.9); POTASSIUM 3.7 mmol/L (3.5-5.1); SODIUM SERUM 142 mmol/L (136-145); TOTAL PROTEIN, SERUM 6.7 g/dL (6.4-8.2); UREA NITROGEN, BLOOD 31 mg/dL (7-18)
[2021-06-06] MEDS: *INSULIN REGULAR(HUMULIN R)HUM 100 UNIT/ML VIAL SQ PRN (21:41)
--- NOTE | 2021-06-06 21:55 | NUR ---
RN NOTE: ORDER FOR STRAIGHT CATHETER AND WAIT FOR RESULTS OF UA PRIOR TO TRANSFER TO MEDICAL FLOOR.
--- NOTE | 2021-06-06 22:21 | NUR ---
RN NOTE: STRAIGHT CATHETER USING ASEPTIC TECHNIQUE. UA SENT TO LAB
[2021-06-06 23:13] LABS: BILIRUBIN,URINE NEGATIVE (NEGATIVE); COLOR,URINE YELLOW (YELLOW); LEUKOCYTE ESTERASE ,URINE NEGATIVE (NEGATIVE); NITRITE, URINE NEGATIVE (NEGATIVE); PH,URINE 5.5 (5.0-8.0); PROTEIN,URINE TRACE mg/dl (NEGATIVE); UGLUCOSE 500 MG/DL mg/dL (NEGATIVE); UROBILINOGEN,URINE 0.2 EU/dL (0.2)
[2021-06-06 23:25] LABS: BACTERIA,URINE Few /HPF (None Seen); RBC,URINE 0-2 /HPF (0-2)
[2021-06-06 23:26] LABS: MUCUS,URINE Few /LPF (None Seen); SQUAMOUS EPITHELIAL CELL,UR Few /HPF (None Seen)
--- NOTE | 2021-06-07 00:15 | NUR ---
patient got discharge and transfer out to medical surgical unit. upon discharge patient was awake alert, denies any pain or discomfort no distress noted. on room air breathing even unlabored. patient is major depression refused to drink and eat any thing at this time. report given to RN Ifoma all needs met .
[2021-06-07 03:13] LABS: BILIRUBIN,DIRECT 0.1 mg/dL (0.0-0.2)
[2021-06-07] MEDS ORDERED: TEMA15CA5 PO (08:22)
[2021-06-07] MEDS ORDERED: INSU100V3 SQ (08:22)
[2021-06-07] MEDS ORDERED: MEGE40TA5 PO (08:22)
[2021-06-07] MEDS ORDERED: DEXT50DI8 IV (08:22)
[2021-06-07] MEDS ORDERED: MAGN400O6 PO (08:22)
[2021-06-07] MEDS ORDERED: BLOO-668 IN (08:22)
[2021-06-07] MEDS ORDERED: MAG30ORA PO (08:22)
[2021-06-07] MEDS ORDERED: MIRT7.5T10 PO (08:22)
[2021-06-07] MEDS ORDERED: LORA-259 PO (08:22)
[2021-06-07] MEDS ORDERED: ACET-868 PO (08:22)
[2021-06-07] MEDS ORDERED: LITH300T3 PO (08:22)
[2021-06-07] MEDS ORDERED: LACT-246 PO (08:22)
== END 2021-06-07 00:15 | disposition short-term general hospital (02) | DRG 885 ==
LOC: GPS 15:10
PROVIDERS: ADMIT Psychiatry & Neurology Psychiatry; ATTEND Internal Medicine
DX: F31.30 Bipolar disorder, current episode depressed, mild or moderate severity, unspecified (principal); E43 Unspecified severe protein-calorie malnutrition; R45.851 Suicidal ideations; Z68.1 Body mass index [BMI] 19.9 or less, adult; F29 Unspecified psychosis not due to a substance or known physiological condition; F41.9 Anxiety disorder, unspecified; Z73.6 Limitation of activities due to disability; R27.8 Other lack of coordination; R53.1 Weakness; Z91.81 History of falling; E11.9 Type 2 diabetes mellitus without complications; R62.7 Adult failure to thrive; G31.84 Mild cognitive impairment of uncertain or unknown etiology
CPT/HCPCS: 36415; 71045-TC; 80048-TC; 80053-TC; 80061-TC; 81001; 82248-TC; 82550-TC; 82962-TC; 83605-TC; 83735-TC; 84100-TC; 84443-TC; 85025-TC; 87081-TC; 87086-TC; J1815

== ENCOUNTER 2021-06-11 15:49 | Inpatient (IN) | payer MEDICARE, BC ==
[~2021-06-11] VITALS: Ht 157.5 cm; Wt 39.9 kg
[~2021-06-11 15:49] MED LIST: ACET-868 PO; BLOO-668 IN; DEXT50DI8 IV; INSU100V3 SQ; INSU200I4 SQ; LACT-246 PO; LITH300T3 PO; LORA-259 PO; MAG30ORA PO; MAGN400O6 PO; MEGE40TA5 PO; METF-440 PO; MIRT7.5T10 PO; TEMA15CA5 PO
[2021-06-11 16:16] VITALS: BP 100/56
[2021-06-11] MEDS ORDERED: LORAZEPAM 0.5 MG TABLET PO PRN (16:30)
[2021-06-11] MEDS ORDERED: BLOOD SUGAR DIAGNOSTIC 1 EACH STRIP IN ONE (16:30)
[2021-06-11] MEDS ORDERED: ACETAMINOPHEN 325 MG TABLET PO PRN (16:30)
[2021-06-11] MEDS ORDERED: ZOLPIDEM TARTRATE 5 MG TABLET PO PRN (16:30)
[2021-06-11] MEDS ORDERED: MAG HYDROX/AL HYDROX/SIMETH 30 ML UDC PO PRN (16:30)
[2021-06-11] MEDS ORDERED: MAGNESIUM HYDROXIDE 30 ML UDC PO PRN (16:30)
[2021-06-11] MEDS ORDERED: PANT40TA49 PO (17:09)
--- NOTE | 2021-06-11 18:20 | NUR ---
RN-ADMISSION NOTES ADMITTED 65 YEARS OLD FEMALE PATIENT FROM [facility] . PATIENT ON 5270 HOLD FOR GD ADULT.UPON FACE TO FACE INTERVIEW ,PATIENT A/O X2 MINIMAL INTERACTIONS AND ANSWER FEW QUESTIONS ONLY,FLAT AFFECT WITH DEPRESSED MOOD ,DENIES SI/HI , VISUAL/AUDITORY HALLUCINATIONS AT THIS TIME. PATIENT ABLE TO AMBULATE IN THE BATHROOM WITH STEADY GAIT.CONTRA BAND AND FULL BODY ASSESSMENT DONE. MRSA SWAB ALSO DONE. PATIENT WAS ORIENTED IN THE UNIT AND UNIT POLICIES. DR. CORLEY ( PSYCHIATRIST ) MADE AWARE WITH ORDERS. DR. MOLINA ( WIND PLANT MANAGER) ALSO MADE AWARE AND WILL RECONCILE MEDICATIONS. ANDREAS PADILLA ( ) WAS MADE AWARE OF PATIENT ADMISSION. PATIENT LYING IN BED INTERACTING WITH TWO FEMALE VISITOR AT THIS TIME.WILL ENDORSE TO INCOMING SHIFT FOR MONITORING AND CONTINUITY OF CARE.
--- NOTE | 2021-06-11 19:10 | NUR ---
RN-NOTES PATIENT BS AROUND 1640 WAS 232 AFTER EATING OUTSIDE FOOD THAT FRIEND BROUGHT IN. DR. ABARCA MADE AWARE WITH NNO. ENDORSED TO THE NIGHT NURSE FOR FOLLOW UP AND CONTINUITY OF CARE.
[2021-06-11 20:00] VITALS: BP 109/61
[2021-06-12 07:50] LABS: CHOLESTEROL 244 mg/dL (<200); HDL CHOLESTEROL 52 mg/dL (40-60); LDL 163 mg/dL (0-99); TRIGLYCERIDES 145 mg/dL (30-150)
[2021-06-12 07:56] LABS: ALBUMIN 3.2 g/dL (3.4-5.0); BILIRUBIN,TOTAL 0.6 mg/dL (0.2-1.0); CREATININE 0.6 mg/dL (0.6-1.3); POTASSIUM 3.8 mmol/L (3.5-5.1); TOTAL PROTEIN, SERUM 6.9 g/dL (6.4-8.2)
[2021-06-12 08:00] VITALS: BP 104/56
[2021-06-12] MEDS: BLOOD SUGAR DIAGNOSTIC 1 EACH STRIP VI SCH ×3 (08:56→22:20)
[2021-06-12] MEDS ORDERED: MAG HYDROX/AL HYDROX/SIMETH 30 ML UDC PO PRN (09:00)
[2021-06-12] MEDS ORDERED: DEXTROSE 50%-WATER 50 ML DISP.SYRIN IV PRN (09:00)
[2021-06-12] MEDS ORDERED: MAGNESIUM HYDROXIDE 30 ML UDC PO PRN (09:00)
[2021-06-12] MEDS ORDERED: ACETAMINOPHEN 325 MG TABLET PO PRN (09:00)
[2021-06-12] MEDS: INSULIN REGULAR, HUMAN 100 UNIT/ML 3 ML VIAL SQ PRN ×2 (12:50→18:03)
[2021-06-12 16:00] VITALS: BP 100/58
[2021-06-12 20:00] VITALS: BP 129/68
[2021-06-12] MEDS: MIRTAZAPINE 15 MG TABLET PO SCH (21:51)
[2021-06-12] MEDS: LITHIUM CARBONATE 150 MG CAPSULE PO SCH (21:51)
[2021-06-12] MEDS ORDERED: Medication Not On Formulary EA (Mirtazapine 30 MG) PO SCH (22:00)
[2021-06-12] MEDS: *INSULIN REGULAR(HUMULIN R)HUM 100 UNIT/ML VIAL SQ PRN (22:21)
[2021-06-13] MEDS: PANTOPRAZOLE 40 MG TABLET.DR PO SCH (07:30)
[2021-06-13] MEDS: BLOOD SUGAR DIAGNOSTIC 1 EACH STRIP VI SCH ×4 (07:46→22:07)
[2021-06-13 08:00] VITALS: BP 109/51
[2021-06-13] MEDS: LITHIUM CARBONATE 150 MG CAPSULE PO SCH ×2 (08:43→21:24)
[2021-06-13] MEDS: INSULIN REGULAR, HUMAN 100 UNIT/ML 3 ML VIAL SQ PRN ×2 (12:21→17:40)
[2021-06-13 16:00] VITALS: BP 108/58
[2021-06-13 20:00] VITALS: BP 95/46
[2021-06-13] MEDS: MIRTAZAPINE 15 MG TABLET PO SCH (21:24)
--- NOTE | 2021-06-13 22:04 | NUR ---
GPS RN NOTES: PATIENT BLOOD SUGAR AT 2200 136MG/DL. PATIENT REFUSED 2UNITS INSULIN PER SLIDING SCALE. WILL CONTINUE TO MONITOR.
--- NOTE | 2021-06-14 06:56 | NUR ---
GPS RN CLOSING NOTE: PATIENT IS CURRENTLY LAYING IN BED AWAKE, A/O X1. PATIENT SLEPT 4 HOURS THIS SHIFT. PATIENT WAS COMPLIANT WITH MEDICATION THIS SHIFT. NO S/S OF DISTRESS, RESPIRATION EVEN AND UNLABORED WITH EQUAL RISE AND FALL OF THE CHEST, ON ROOM AIR. BED IN LOWEST POSITION AND LOCKED, SIDE RAILS UP X2. ALL PATIENT CARE NEEDS HAVE BEEN MET AT THIS TIME. WILL CONTINUE TO MONITOR AND ENDORSE TO AM SHIFT.
[2021-06-14] MEDS: BLOOD SUGAR DIAGNOSTIC 1 EACH STRIP VI SCH ×4 (07:41→21:20)
[2021-06-14] MEDS: PANTOPRAZOLE 40 MG TABLET.DR PO SCH (07:56)
[2021-06-14 08:00] VITALS: BP 117/71
[2021-06-14] MEDS: LITHIUM CARBONATE 150 MG CAPSULE PO SCH ×2 (08:31→21:20)
--- NOTE | 2021-06-14 09:00 | NUR ---
RN NOTE- PT EATING BREAKFAST ON HER OWN WITHOUT PROMPTING, MED COMPLIANT THOUGH QUESTIONS RX , MORE INTERACTIVE THAN IN PAST, DISHEVELED AND UNKEPT. POOR EYE CONTACT
[2021-06-14] MEDS: INSULIN REGULAR, HUMAN 100 UNIT/ML 3 ML VIAL SQ PRN ×2 (11:45→12:54)
--- NOTE | 2021-06-14 12:03 | NUR ---
RN NOTE- PT ACCU-CHECK BS-407. PT ON MODERATE SSI COVERAGE. 15U SSI ADMINISTERED. SHAREE LAZO NOTIFIED. ORDERED RECHECK IN 30 MN.
[2021-06-14] MEDS ORDERED: INSULIN REGULAR, HUMAN 100 UNIT/ML 3 ML VIAL SQ STA (12:47)
--- NOTE | 2021-06-14 12:51 | NUR ---
RN NOTE- RECHECK BS- 356. SHAREE LAZO ORDERED REGULAR INSULIN 10 U SSI STAT X ONE DOSE. RECHECK PER USUAL SSI ACCU-CHECKS
--- NOTE | 2021-06-14 15:40 | NUR ---
Initial Discharge Plan: Pt plans to return to her prior living arrangement at home with her spouse, Desmond, . SW will work with the pt and MD regarding appropriate discharge planning, SW will form a safe and proper discharge plan.
[2021-06-14 16:00] VITALS: BP 98/59
--- NOTE | 2021-06-14 19:30 | NUR ---
RN OPENING NOTE PATIENT IS SITTING UP ON THE BED, READING A BOOK. PATIENT IS A/O X 3. ABLE TO MAKE NEEDS KNOWN. PATIENT IS QUIET, DOES NOT INITIATE INTERACTION UNLESS OTHERS INTERACT FIRST. PATIENT IS NOT IN ANY APPARENT DISTRESS. DENIES SI/HI AT THIS TIME. SAFETY MEASURES IN PLACE: BED IN LOCKED AND IN LOWEST POSITION, SIDE RAILS UP. WILL MONITOR PATIENT FOR SAFETY AND BEHAVIOR.
[2021-06-14 20:00] VITALS: BP 107/60
--- NOTE | 2021-06-14 21:35 | NUR ---
BS 184 MG/DL. 3 UNITS GIVEN FOR COVERAGE. ALSO PROVIDED PATIENT SNACKS AND JUICE AT BEDSIDE. WILL MONITOR FOR HYPOGLYCEMIA.
[2021-06-14] MEDS: MIRTAZAPINE 15 MG TABLET PO SCH (21:39)
[2021-06-14] MEDS: *INSULIN REGULAR(HUMULIN R)HUM 100 UNIT/ML VIAL SQ PRN (21:48)
--- NOTE | 2021-06-14 22:00 | NUR ---
RN NOTE PATIENT REFUSED REMERON SHE SAID THAT "I'VE TAKEN THIS BEFORE AND I REMEMBER IT MADE ME NOT SLEEP VERY WELL" SHE ALSO STATES THAT "IT DOES NOT SMELL GOOD". EDUCATED PATIENT ON DRUG PURPOSE, BENEFITS, AND RISK. PATIENT REFUSING AT THIS TIME.
--- NOTE | 2021-06-14 22:45 | NUR ---
RN NOTE PATIENT STATES THAT SHE'S THINKING A LOT, SHE CAN'T SLEEP. ATIVAN GIVEN FOR ANXIOUSNESS.
[2021-06-15] MEDS: BLOOD SUGAR DIAGNOSTIC 1 EACH STRIP VI SCH ×4 (07:30→22:10)
[2021-06-15] MEDS: PANTOPRAZOLE 40 MG TABLET.DR PO SCH (07:30)
[2021-06-15 08:00] VITALS: BP 100/63
[2021-06-15] MEDS: SERTRALINE HCL 50 MG TABLET PO SCH (09:30)
[2021-06-15] MEDS: LITHIUM CARBONATE 150 MG CAPSULE PO SCH ×2 (09:30→21:18)
[2021-06-15] MEDS: INSULIN REGULAR, HUMAN 100 UNIT/ML 3 ML VIAL SQ PRN ×2 (12:04→17:45)
[2021-06-15 16:37] VITALS: BP 110/54
[2021-06-15 19:56] VITALS: BP 106/50
[2021-06-15] MEDS: MIRTAZAPINE 15 MG TABLET PO SCH (21:18)
[2021-06-15] MEDS: *INSULIN REGULAR(HUMULIN R)HUM 100 UNIT/ML VIAL SQ PRN (22:14)
[2021-06-16] MEDS: BLOOD SUGAR DIAGNOSTIC 1 EACH STRIP VI SCH ×4 (07:30→21:56)
[2021-06-16 08:00] VITALS: BP 106/64
[2021-06-16] MEDS: LITHIUM CARBONATE 150 MG CAPSULE PO SCH ×2 (08:00→20:54)
[2021-06-16] MEDS: PANTOPRAZOLE 40 MG TABLET.DR PO SCH (08:00)
[2021-06-16] MEDS: SERTRALINE HCL 50 MG TABLET PO SCH (08:00)
[2021-06-16] MEDS: INSULIN REGULAR, HUMAN 100 UNIT/ML 3 ML VIAL SQ PRN ×2 (08:24→11:55)
[2021-06-16] MEDS: METFORMIN 500 MG TABLET PO SCH ×2 (10:11→16:32)
[2021-06-16 13:47] LABS: ALBUMIN 3.1 g/dL (3.4-5.0); BILIRUBIN,TOTAL 0.3 mg/dL (0.2-1.0); CALCIUM, SERUM 8.9 mg/dL (8.5-10.1); CREATININE 0.8 mg/dL (0.6-1.3); POTASSIUM 3.9 mmol/L (3.5-5.1); TOTAL PROTEIN, SERUM 6.8 g/dL (6.4-8.2)
[2021-06-16 16:00] VITALS: BP 104/56
[2021-06-16 19:55] VITALS: BP 118/53
[2021-06-16 20:05] VITALS: BP 118/53
[2021-06-16] MEDS: *INSULIN REGULAR(HUMULIN R)HUM 100 UNIT/ML VIAL SQ PRN (22:01)
[2021-06-16] MEDS: MIRTAZAPINE 15 MG TABLET PO SCH (22:09)
--- NOTE | 2021-06-16 22:17 | NUR ---
RN NOTE PATIENT TOOK LITHIUM & REMERON SCHEDULED WITH LOTS OF ENCOURAGEMENT.
[2021-06-17 08:00] VITALS: BP 98/57
[2021-06-17] MEDS: BLOOD SUGAR DIAGNOSTIC 1 EACH STRIP VI SCH ×4 (08:16→21:59)
[2021-06-17] MEDS: LITHIUM CARBONATE 150 MG CAPSULE PO SCH ×2 (09:11→21:09)
[2021-06-17] MEDS: METFORMIN 500 MG TABLET PO SCH ×2 (09:11→17:30)
[2021-06-17] MEDS: PANTOPRAZOLE 40 MG TABLET.DR PO SCH (09:12)
[2021-06-17] MEDS: SERTRALINE HCL 50 MG TABLET PO SCH (09:12)
[2021-06-17] MEDS: INSULIN REGULAR, HUMAN 100 UNIT/ML 3 ML VIAL SQ PRN ×2 (13:23→17:31)
[2021-06-17 16:00] VITALS: BP 108/63
[2021-06-17 19:57] LABS: BILIRUBIN,URINE NEGATIVE (NEGATIVE); COLOR,URINE YELLOW (YELLOW); LEUKOCYTE ESTERASE ,URINE SMALL (NEGATIVE); NITRITE, URINE POSITIVE (NEGATIVE); PH,URINE 7.5 (5.0-8.0); PROTEIN,URINE 30 mg/dl (NEGATIVE); UGLUCOSE 250 MG/DL mg/dL (NEGATIVE); UROBILINOGEN,URINE 0.2 EU/dL (0.2)
[2021-06-17 20:11] LABS: BACTERIA,URINE 3+ /HPF (None Seen); RBC,URINE 21-50 /HPF (0-2); SQUAMOUS EPITHELIAL CELL,UR 0-2 /HPF (None Seen); WBC,URINE 21-50 /HPF (0-3)
[2021-06-17 20:22] VITALS: BP 101/54
[2021-06-17 21:20] VITALS: BP 109/63
[2021-06-17] MEDS: MIRTAZAPINE 15 MG TABLET PO SCH (21:59)
[2021-06-18 07:39] LABS: BASOPHILS # (AUTO) 0.1 K/uL (0.0-0.2); BASOPHILS % (AUTO) 0.8 % (0.0-2.0); EOSINOPHILS % (AUTO) 2.5 % (0.0-6.0); HEMATOCRIT 39 % (33-45); LYMPHOCYTES # (AUTO) 1.7 K/uL (0.8-4.8); LYMPHOCYTES % (AUTO) 19.8 % (20.0-44.0); MEAN CORPUSCULAR HGB CONC 33 g/dl (31.0-36.0); MEAN CORPUSCULAR VOLUME 89 fL (82-100); MONOCYTES # (AUTO) 0.7 K/uL (0.1-1.30); MONOCYTES % (AUTO) 8.6 % (2.0-12.0); NEUTROPHILS # (AUTO) 5.8 K/uL (1.8-8.9); NEUTROPHILS % (AUTO) 68.3 % (43.0-81.0); PLATELET COUNT (AUTO) 468 K/uL (150-450); RED BLOOD CELL COUNT(AUTO) 4.37 MIL/uL (4.0-5.2); WHITE BLOOD COUNT (AUTO) 8.5 K/uL (4.3-11.0)
[2021-06-18] MEDS: BLOOD SUGAR DIAGNOSTIC 1 EACH STRIP VI SCH ×4 (07:51→21:35)
[2021-06-18 08:00] VITALS: BP 115/56
[2021-06-18] MEDS: LITHIUM CARBONATE 150 MG CAPSULE PO SCH ×2 (08:26→21:09)
[2021-06-18] MEDS: PANTOPRAZOLE 40 MG TABLET.DR PO SCH (08:28)
[2021-06-18] MEDS: METFORMIN 500 MG TABLET PO SCH ×2 (08:28→16:31)
[2021-06-18] MEDS: SERTRALINE HCL 50 MG TABLET PO SCH (08:28)
[2021-06-18 08:37] LABS: CALCIUM, SERUM 8.7 mg/dL (8.5-10.1); CREATININE 0.6 mg/dL (0.6-1.3); MAGNESIUM 2.2 mg/dL (1.8-2.4); PHOSPHORUS 4.3 mg/dL (2.5-4.9)
[2021-06-18] MEDS: INSULIN REGULAR, HUMAN 100 UNIT/ML 3 ML VIAL SQ PRN ×2 (12:35→17:35)
[2021-06-18 16:00] VITALS: BP 104/62
[2021-06-18] MEDS: CEPHALEXIN MONOHYDRATE 500 MG CAPSULE PO SCH ×2 (16:31→20:45)
[2021-06-18 21:07] VITALS: BP 104/52
[2021-06-18] MEDS: MIRTAZAPINE 15 MG TABLET PO SCH (21:10)
[2021-06-19] MEDS: BLOOD SUGAR DIAGNOSTIC 1 EACH STRIP VI SCH ×4 (07:30→22:02)
[2021-06-19] MEDS: PANTOPRAZOLE 40 MG TABLET.DR PO SCH (07:30)
[2021-06-19 08:00] VITALS: BP 109/58
[2021-06-19] MEDS: LITHIUM CARBONATE 150 MG CAPSULE PO SCH ×2 (09:00→21:32)
[2021-06-19] MEDS: CEPHALEXIN MONOHYDRATE 500 MG CAPSULE PO SCH ×2 (09:00→21:32)
[2021-06-19] MEDS: METFORMIN 500 MG TABLET PO SCH ×2 (09:00→16:29)
[2021-06-19] MEDS: SERTRALINE HCL 50 MG TABLET PO SCH (09:00)
[2021-06-19] MEDS: INSULIN REGULAR, HUMAN 100 UNIT/ML 3 ML VIAL SQ PRN (10:26)
[2021-06-19 16:00] VITALS: BP 115/79
[2021-06-19 20:31] VITALS: BP 116/59
[2021-06-19] MEDS: MIRTAZAPINE 15 MG TABLET PO SCH (21:33)
[2021-06-20] MEDS: BLOOD SUGAR DIAGNOSTIC 1 EACH STRIP VI SCH ×4 (07:19→22:27)
[2021-06-20] MEDS: PANTOPRAZOLE 40 MG TABLET.DR PO SCH (07:27)
[2021-06-20 08:34] VITALS: BP 118/64
[2021-06-20] MEDS: CEPHALEXIN MONOHYDRATE 500 MG CAPSULE PO SCH ×2 (09:46→22:16)
[2021-06-20] MEDS: SERTRALINE HCL 50 MG TABLET PO SCH (09:46)
[2021-06-20] MEDS: METFORMIN 500 MG TABLET PO SCH ×2 (09:46→16:53)
[2021-06-20] MEDS: LITHIUM CARBONATE 150 MG CAPSULE PO SCH ×2 (09:46→22:16)
[2021-06-20 16:00] VITALS: BP 109/59
[2021-06-20 20:00] VITALS: BP 97/57
--- NOTE | 2021-06-20 20:00 | NUR ---
RN MARLYS NOTE PATIENT IS A/O X 3. ABLE TO MAKE NEEDS KNOWN. PATIENT INITIATING INTERACTION VERY CONCERNED WITH WHAT MEDICATIONS SHE IS TAKEN. GIVEN WRITEN LIST OF ALL SCHEDULED MEDICATIONS EDUCATION PROVIDED. PATIENT IS NOT IN ANY APPARENT PHYSICAL DISTRESS BREATHING EVEN UNLABORED. PT COOPERATIVE DENIES SI/HI AT THIS TIME. SAFETY MEASURES IN PLACE: BED IN LOCKED AND IN LOWEST POSITION, SIDE RAILS UP X2. WILL MONITOR PATIENT FOR SAFETY AND BEHAVIOR. PER REPORT PATIENT IS PLANNING TO BE DISCHARGED TO HOME TOMORROW 06/21/21
[2021-06-20] MEDS: MIRTAZAPINE 15 MG TABLET PO SCH (22:00)
--- NOTE | 2021-06-20 22:10 | NUR ---
PATIENT REFUSED MEDICATION. PATIENT ADAMANTLY STATING THAT SHE ALREADY TOOK MEDICATION THIS MORNING. PATIENT INFORMED THAT THE DOCTOR ALSO ORDERED THAT SHE TAKE THIS MEDICINE AT NIGHT. PATIENT STILL STATES SHE TOOK MEDICATION THIS AM. STATES, "I ALREADY TOOK. I DON'T NEED NO MORE."
[2021-06-20] MEDS: *INSULIN REGULAR(HUMULIN R)HUM 100 UNIT/ML VIAL SQ PRN (22:22)
[2021-06-21] MEDS: PANTOPRAZOLE 40 MG TABLET.DR PO SCH (07:30)
[2021-06-21] MEDS: BLOOD SUGAR DIAGNOSTIC 1 EACH STRIP VI SCH ×2 (07:52→11:58)
[2021-06-21 08:00] VITALS: BP 100/50
[2021-06-21] MEDS: CEPHALEXIN MONOHYDRATE 500 MG CAPSULE PO SCH (09:13)
[2021-06-21] MEDS: METFORMIN 500 MG TABLET PO SCH (09:13)
[2021-06-21] MEDS: LITHIUM CARBONATE 150 MG CAPSULE PO SCH (09:13)
[2021-06-21] MEDS: SERTRALINE HCL 50 MG TABLET PO SCH (09:13)
[2021-06-21] MEDS: INSULIN REGULAR, HUMAN 100 UNIT/ML 3 ML VIAL SQ PRN (12:03)
--- NOTE | 2021-06-21 16:05 | NUR ---
Home Health Referral: LEANDRO faxed clinicals to [facility] (PH: [phone], FAX: [phone]). LEANDRO will continue to f/u.
--- NOTE | 2021-06-21 16:10 | NUR ---
Discharge Summary: Pt. was discharged to her prior living arrangement at home [[address] [place] [address]; [phone]] with pts spouse, Desmond, . Pt. was provided transportation by her spouse, Desmond. Upon D/C the pt.s mood was euthymic. Pt. remained calm & cooperative. Pt. denied SI/HI and denied hallucinations. Pt. will be under the care of a psychiatrist, Dr. Alex Calabrese [[address] [place] [address]; ]. Pt. will be seen by aircraft designer, Eunice Christina MD at [facility] [[address], [address], [place] [address]; ].
--- NOTE | 2021-06-21 16:20 | NUR ---
Pt. discharged to her prior living arrangement at home [[address] [place] [address]; [phone]] with pts spouse, Desmond, . Pt. was provided transportation by her spouse, Desmond. Upon D/C the pt.s mood was calm and cooperative. Pt. denied SI/HI and denied hallucinations. Pt. will be under the care of a psychiatrist, Dr. Alex Calabrese [[id number] [place] [address]; ]. Pt. will be seen by shake packer, Eunice Christina MD at [facility] [[address], [address], [place] [address]; ]. All belongings returned. Copy of after care plan given along with prescriptions. Escorted to main lobby by staff.
[2021-06-21 16:30] VITALS: BP 121/60
--- NOTE | 2021-06-22 11:33 | NUR ---
Home Health Referral: LEANDRO contacted [facility] (PH: [phone], FAX: [phone]) regarding home health referral. LEANDRO was notified by Consuelo at [facility] that the pts referral has been received and is being reviewed. SW will continue to remain available and f/u as needed.
== END 2021-06-21 16:20 | disposition home or self-care (01) | DRG 885 ==
LOC: GPS 15:49
PROVIDERS: ADMIT Psychiatry & Neurology Psychiatry
DX: F31.5 Bipolar disorder, current episode depressed, severe, with psychotic features (principal); E43 Unspecified severe protein-calorie malnutrition; N17.0 Acute kidney failure with tubular necrosis; E11.65 Type 2 diabetes mellitus with hyperglycemia; Z68.1 Body mass index [BMI] 19.9 or less, adult; E87.2 Acidosis; R45.851 Suicidal ideations; N39.0 Urinary tract infection, site not specified; E86.0 Dehydration; E87.6 Hypokalemia; R27.8 Other lack of coordination; Z91.81 History of falling; R62.7 Adult failure to thrive; F41.9 Anxiety disorder, unspecified; G31.84 Mild cognitive impairment of uncertain or unknown etiology
CPT/HCPCS: 36415; 70450-TC; 80048-TC; 80053-TC; 80061-TC; 81001; 82962-TC; 83735-TC; 84100-TC; 85025-TC; 87081-TC; 87086-TC; 87186-TC; 92526; 92611-TC; J1815